=== PATIENT | male | born 1970 | race Caucasian/White ===

== ENCOUNTER → 2020-07-19 15:46 | Outpatient (CLI) | payer OTHER, SELFPAY ==
[2020-07-21 10:02] LABS: Covid-19 Nasal PCR Sendout P&C POSITIVE
== END ==
PROVIDERS: PCP Nurse Practitioner Family; Visit Provider Nurse Practitioner Family
DX: U07.1 COVID-19 (principal)
CPT/HCPCS: U0004

== ENCOUNTER 2020-07-20 17:23 | Inpatient (IN) | payer OTHER, SELFPAY ==
[2020-07-20] VITALS (10 sets, daily range): BP systolic 113–168; BP diastolic 75–108; PULSE 81–112; RESP 18–24; TEMP 36.8–39.4; O2SAT 88–93; BMI 30.4; BMI 38.0
--- NOTE | 2020-07-20 17:27 | HMH.EDGENADL ---
ED Disposition Clinical Impression: Pneumonia due to COVID-19 virus, Acute hypoxemic respiratory failure Disposition: Admitted As Inpatient Condition on Discharge: Good Referrals: Yi Calhoun APRN [Primary Care Provider] - - Critical Care Critical Care Time: No Attestation: On , the high probability of a clinically significant, sudden or life threatening deterioration of the following system(s) required my full and direct attention, intervention and personal management. The time I documented below is in addition to time spent performing reported procedures but includes the following listed in this critical care notation. Medical Decision Making - Medical Records Medical records reviewed: Yes: I reviewed the patient's medical records. - [place] Inquiry Pt receiving controlled substance: No Vital Signs: 07/20/20 17:24 07/20/20 18:24 Temperature 102.9 F H 101.6 F H Temperature Source Oral Oral Pulse Rate [Left Radial] 112 H 109 H Respiratory Rate 20 24 Blood Pressure [Right Arm] 158/93 H 168/104 H Blood Pressure Mean [Right Arm] 114 125 Blood Pressure Source [Right Arm] Automatic Cuff Automatic Cuff Blood Pressure Position [Right Arm] Sitting Supine 02 Sat by Pulse Oximetry 92 L 92 L Oxygen Delivery Method Nasal Cannula Nasal Cannula Oxygen Flow Rate (LPM) 4 4 - Lab Data Lab Results 07/20/20 17:40: Chlamy pneumoniae PCR Not detected, Adenovirus (PCR) Not detected, B. pertussis DNA (PCR) Not detected, Coronavirus OC43 (PCR) Not detected, Coronavirus HKU1 (PCR) Not detected, Coronavirus 229E (PCR) Not detected, SARS-CoV-2 (PCR) Detected A, Coronavirus NL63 (PCR) Not detected, Human Metapneumovir PCR Not detected, Influenza A (H1) PCR Not detected, Influ A (H1N1/09) PCR Not detected, Influenza A (H3) PCR Not detected, Influenza Type A (PCR) Not detected, Influenza Type B (PCR) Not detected, M. pneumoniae (PCR) Not detected, Parainfluenza 1 (PCR) Not detected, Parainfluenza 2 (PCR) Not detected, Parainfluenza 3 (PCR) Not detected, Parainfluenza 4 (PCR) Not detected, RSV (PCR) Not detected, Entero/Rhino (PCR) Not detected 07/20/20 17:40: Troponin I < 0.01 07/20/20 17:40: WBC 8.1, RBC 5.27, Hgb 15.8, Hct 47.6, MCV 90.5, MCH 30.0, MCHC 33.1, RDW 13.7, Plt Count 253, MPV 7.6, Neut % (Auto) 84.5 H, Lymph % (Auto) 10.4, [place] % (Auto) 4.4, Eos % (Auto) 0.1, Baso % (Auto) 0.6, Neut # (Auto) 6.9, Lymph # (Auto) 0.8, [place] # (Auto) 0.4, Eos # (Auto) 0.0, Baso # (Auto) 0.1 07/20/20 17:40: Sodium 140, Potassium 3.7, Chloride 104, Carbon Dioxide 26, Anion Gap 13.7, BUN 17, Creatinine 1.00, Estimated Creat Clear 112, Estimated GFR 79, Est GFR ( Amer) 95, Glucose 127 H, Calcium 9.1, Total Bilirubin 0.6, AST 41, ALT 32, Alkaline Phosphatase 69, Total Protein 7.5, Albumin 3.9, Globulin 3.6 H, Albumin/Globulin Ratio 1.1 07/20/20 17:40: SARS-CoV-2 IgG Ab (Rapid) Positive A, SARS-CoV-2 IgM Ab (Rapid) Negative 07/20/20 17:41: Lactate 1.2 07/20/20 17:57: Specimen Source Left radial, O2 % 4 lpm nc, 36%, ABG pH 7.46 H, ABG pCO2 28.7 L, ABG pO2 68.7 L, ABG HCO3 19.8 L, ABG Total CO2 20.7 L, ABG O2 Saturation 95, ABG Base Excess -4.1 L, Tao Test Acceptable Result diagrams: 07/20/20 17:40 07/20/20 17:40 Orders (Tests/Meds): ED MEDICATIONS Generic Name Dose Route Start Last Admin Trade Name Freq PRN Reason Stop Dose Admin Acetaminophen 650 mg 07/20/20 19:33 Acetaminophen 325mg Tab PO 08/19/20 19:32 Q6HP PRN Mild pain,fever,headache Ascorbic Acid 500 mg 07/20/20 21:00 Ascorbic Acid 500mg Tab PO 08/19/20 20:59 QID JOHANN Dexamethasone Sodium Phosphate 6 mg 07/20/20 09:00 Dexamethasone 4mg/Ml 1ml Vial IV 08/19/20 08:59 DAILY [facility] Enoxaparin Sodium 40 mg 07/21/20 09:00 Enoxaparin 40mg/0.4ml Syringe SQ 08/20/20 08:59 DAILY [facility] Ergocalciferol 50,000 unit 07/20/20 19:45 Ergocalciferol 50,000 Units (1.25mg) Capsule PO 08/19/20 19:44 WEEKLY [facility] Famotidine 20 mg 07/20/20
--- NOTE | 2020-07-20 17:42 | ECG_ITS ---
APPROVED REPORT Exam: Resting ECG HR:117 bpm ECG Measurements Heart Rate 117 AXES TX 120 P 34 QRSd 82 QRS 46 QT 440 T 15 QTc 613 Conclusion Sinus tachycardia with premature atrial complexes with aberrant conduction Low voltage QRS T wave abnormality, consider inferior ischemia T wave abnormality, consider anterolateral ischemia Abnormal ECG Electronically signed by : Jonnie Nieves, 07/21/2020 09:59:02
--- NOTE | 2020-07-20 17:49 | XR_ITS ---
PROCEDURE: XR CHEST PORTABLE CLINICAL HISTORY: soa COMPARISON: No exams were available for comparison FINDINGS: Mild cardiomegaly without failure. Patchy infiltrate/atelectatic change right upper lobe. Infiltrate in both lower lung zones and left midlung. Some of these have a ground-glass attenuation suggesting Covid19 pneumonia. No acute bony abnormalities. IMPRESSION: Bilateral pneumonia suspicious for Covid19 pneumonia Dictated by: Tao Trejo MD 07/20/2020 18:47 Tao Trejo MD in [place] 07/20/2020 18:47
[2020-07-20 17:59] LABS: Basophils # 0.1 K/mm3 (0-0.2); Basophils % 0.6 % (0.1-2.0); Eosinophils % 0.1 % (0.1-12.0); Hematocrit 47.6 % (42.0-52.0); Hemoglobin 15.8 g/dL (14.1-18.0); Lymphocytes # 0.8 K/mm3 (0.7-4.5); Lymphocytes % 10.4 % (10-50); Mean Corpuscular HGB Conc 33.1 g/dL (31.8-35.4); Mean Corpuscular Volume 90.5 fl (80-94); Mean Platelet Volume 7.6 fl (7.4-10.4); Monocytes # 0.4 K/mm3 (0.1-1.0); Monocytes % 4.4 % (1.7-9.3); Neutrophils # 6.9 K/mm3 (1.8-7.8); Neutrophils % 84.5 % (37.0-80.0); Platelet Count 253 K/mm3 (142-424); Red Blood Count 5.27 M/mm3 (4.60-6.20); Red Cell Distribution Width 13.7 % (11.5-17.5); White Blood Count 8.1 K/mm3 (4.8-10.8)
[2020-07-20 18:03] LABS: Adenovirus,PCR Not Detected (NotDetected); Bordetella Pertussis Not Detected (NotDetected); Chlamydophila Pneumoniae, PCR Not Detected (NotDetected); Coronavirus 229E Not Detected (NotDetected); Coronavirus NL63 Not Detected (NotDetected); Coronavirus OC43 Not Detected (NotDetected); Coronovirus HKU1,PCR Not Detected (NotDetected); Human Metapneumovirus Not Detected (NotDetected); Influenza A, PCR Not Detected (NotDetected); Influenza AH1, 2009 Not Detected (NotDetected); Influenza AH1, PCR Not Detected (NotDetected); Influenza AH3,PCR Not Detected (NotDetected); Influenza B, PCR Not Detected (NotDetected); Mycoplasma Pneumoniae, PCR Not Detected (NotDetected); Parainfluenza 1, PCR Not Detected (NotDetected); Parainfluenza 2, PCR Not Detected (NotDetected); Parainfluenza 3, PCR Not Detected (NotDetected); Parainfluenza 4, PCR Not Detected (NotDetected); Respiratory Syncytial Virus Not Detected (NotDetected); Rhinovirus/Enterovirus Not Detected (NotDetected)
[2020-07-20 18:05] LABS: Chloride 104 mmol/L (98-107); Potassium 3.7 mmoL/L (3.5-5.1); Sodium 140 mmol/L (136-145)
[2020-07-20 18:08] LABS: Alanine Aminotransferase 32 U/L (12-78); Albumin Level 3.9 g/dl (3.5-5.0); Albumin/Globulin Ratio 1.1 (1.1-1.8); Alkaline Phosphatase 69 U/L (38-126); Anion Gap 13.7 mEq/L (5-15); Aspartate Amino Transferase 41 U/L (17-59); Bilirubin,Total 0.6 mg/dl (0.2-1.3); Blood Urea Nitrogen 17 mg/dl (9-20); Carbon Dioxide 26 mmol/L (22.0-30.0); Creatinine Clearance Estimated 112 mL/min (50-200); Estimated Glomerular Filt Rate 79 ml/min (>60); GFR (African American) 95 ML/MIN (>60); Globulin 3.6 g/dL (1.3-3.2); Total Protein,Serum 7.5 g/dl (6.3-8.2)
[2020-07-20 18:09] LABS: Calcium 9.1 mg/dl (8.4-10.2); Glucose 127 mg/dl (74-100)
[2020-07-20 18:14] LABS: Lactic Acid 1.2 mmol/L (0.7-2.1)
[2020-07-20 18:23] LABS: Troponin I < 0.01 ng/ml (0.00-0.034)
--- NOTE | 2020-07-20 18:23 | PC.NURSE ---
PT PRESENTED TO ER WITH SOA O2 SAT 88% ON RA PT PLACE ON 02 @ 2LPM O2 SAT INCREASED TO 90% PT THEN PLACED O2 @ 4 LPM WITH O2 SAT TO 94%
[2020-07-20 18:45] LABS: ABG Base Excess -4.1 mmol/L (-2.4-2.3); ABG HCO3 19.8 mmhg (22.0-26.0); ABG Oxygen Saturation 95 % (90-100); ABG PCO2 28.7 mmhg (35.0-45.0); ABG PH 7.46 mmol/L (7.35-7.45); ABG PO2 68.7 mmhg (80-100); ABG TCO2 20.7 mmhg (23-27)
[2020-07-20 18:47] LABS: Allen's Test Acceptable; Source Left Radial
--- NOTE | 2020-07-20 18:57 | PC.NURSE ---
Report given to Jalen Casey RN
[2020-07-20 18:58] LABS: Coronavirus 19 IgG Antibody Positive (Negative); Coronavirus 19 IgM Antibody Negative (Negative)
[2020-07-20 19:32] LABS: Coronavirus 19, PCR Detected (NotDetected)
[2020-07-20 21:21] LABS: Troponin I < 0.01 ng/ml (0.00-0.034)
--- NOTE | 2020-07-20 22:03 | PC.NURSE ---
Bedside report given to RIOS Belle at this time
--- NOTE | 2020-07-20 23:03 | PC.NURSE ---
pt arrived to floor at 5 via stretcher from ER with RIOS Smith
[2020-07-21] VITALS: BP 97/58; PULSE 68; RESP 18; TEMP 36.6; O2SAT 90
--- NOTE | 2020-07-21 02:42 | PC.NURSE ---
RESPIRATORY CARE NOTE: 32995- SPUTUM CUP PLACED IN PT ROOM AT THIS TIME- PT ASLEEP AND UNABLE TO PRODUCE SPUTUM SAMPLE AT THIS TIME
[2020-07-21 03:51] VITALS: BP 140/74; PULSE 66; RESP 22; TEMP 36.6; O2SAT 94
--- NOTE | 2020-07-21 03:57 | PC.NURSE ---
pt is AxOx4, remains on 4L NC, O2 sats 90-91%, respirations 18-22, lungs diminished on auscultation, pt does report SOA on exertion, no reports of chest pain, bowel sounds active in all 4 quadrants, pt does report a poor appetite the past 2-3 days, pt educated on the need for sputum sample and voices understandng, report given to RIOS Hale at [id number]
[2020-07-21 04:46] LABS: Chloride 109 mmol/L (98-107); Sodium 140 mmol/L (136-145)
[2020-07-21 04:49] LABS: Alanine Aminotransferase 32 U/L (12-78); Albumin Level 3.4 g/dl (3.5-5.0); Alkaline Phosphatase 59 U/L (38-126); Aspartate Amino Transferase 37 U/L (17-59); Bilirubin,Total 0.6 mg/dl (0.2-1.3); Blood Urea Nitrogen 19 mg/dl (9-20); Calcium 8.5 mg/dl (8.4-10.2); Carbon Dioxide 24 mmol/L (22.0-30.0); Creatinine Clearance Estimated 201 mL/min (50-200); Estimated Glomerular Filt Rate 119 ml/min (>60); GFR (African American) 144 ML/MIN (>60); Globulin 3.3 g/dL (1.3-3.2); Total Protein,Serum 6.7 g/dl (6.3-8.2)
--- NOTE | 2020-07-21 04:52 | PC.NURSE ---
Report received at 0315 from Chao Young RN. Pt is currently resting in bed. He is currently on 4L O2 NC at this time. NS infusing @ 100 ml/hr. Has been up to BR with assist x1. Soa noted during ambulation. No other concerns at this time. VSS. Will continue to monitor.
[2020-07-21 05:20] LABS: Glucose 181 mg/dl (74-100)
[2020-07-21 08:00] VITALS: BP 106/79; PULSE 88; RESP 19; TEMP 36.6; O2SAT 93
--- NOTE | 2020-07-21 08:11 | HMH.HP ---
*Admission Date: 07/20/20 *Chief complaint: Weakness *History of present illness: 50-year-old male with hypertension presented to the emergency department with a 5-day history of illness that began with loss of energy, fatigue, mild chills, mild headache, mild cough, loss of appetite. 2 days after onset of symptoms patient noticed change in taste of food as well as shortness of breath. He believes he also had low-grade fevers. Patient had Covid antibody testing done at an outside facility 1 day after his symptoms began which of course was negative. He presented to my office on and was sent for coronavirus testing of which that result is still unavailable here. However he became more short of breath and with home pulse oximetry monitoring had reached an O2 sat of 84% and came to the emergency department. In the ER patient was hypoxic with O2 sat documented at 88%. Patient was placed on nasal cannula with improvement in sats to the low to mid 90s. Covid test was positive. Covid antibodies were positive for IgG only. Patient was admitted and placed on remdesivir, dexamethasone, nutritional supplements. This morning he reports feeling a little better . [facility] History I have reviewed the patient's past medical history: Yes Medical History: Reports:: Hypertension Denies:: Cancer, Diabetes Mellitus Type 1, Diabetes Mellitus Type 2, Internal Pacemaker, MRSA *Have you ever received a pneumonia vaccine?: No *Have you received a flu vaccine this season?: No Other Surgeries: No: Pacemaker Amputation: No - *Social History Smoking Status: Never smoker Alcohol Intake: never *Occupational Status:: employed Housing: house Household Members: spouse *Travel in the last 8 weeks: None Family Hx:: No significant family history Review of Systems - Review of Systems Review of systems:: pertinent systems reviewed and negative unless documented below Meds Home Medications Medication Instructions Recorded Confirmed Type lisinopriL [Lisinopril 10mg Tab] 10 mg PO DAILY 07/20/20 07/20/20 History Allergies Allergy/AdvReac Type Severity Reaction Status Date / Time No Known Allergies Allergy Verified 07/20/20 22:19 Exam Vital signs and Labs for Last 24 Hours: Temp Pulse Resp BP Pulse Ox 97.8 F 66 22 140/74 94 L 07/21/20 03:51 07/21/20 03:51 07/21/20 03:51 07/21/20 03:51 07/21/20 03:51 Laboratory Results - last 24 hr 07/20/20 17:40: Chlamy pneumoniae PCR Not detected, Adenovirus (PCR) Not detected, B. pertussis DNA (PCR) Not detected, Coronavirus OC43 (PCR) Not detected, Coronavirus HKU1 (PCR) Not detected, Coronavirus 229E (PCR) Not detected, SARS-CoV-2 (PCR) Detected A, Coronavirus NL63 (PCR) Not detected, Human Metapneumovir PCR Not detected, Influenza A (H1) PCR Not detected, Influ A (H1N1/09) PCR Not detected, Influenza A (H3) PCR Not detected, Influenza Type A (PCR) Not detected, Influenza Type B (PCR) Not detected, M. pneumoniae (PCR) Not detected, Parainfluenza 1 (PCR) Not detected, Parainfluenza 2 (PCR) Not detected, Parainfluenza 3 (PCR) Not detected, Parainfluenza 4 (PCR) Not detected, RSV (PCR) Not detected, Entero/Rhino (PCR) Not detected 07/20/20 17:40: Troponin I < 0.01 07/20/20 17:40: WBC 8.1, RBC 5.27, Hgb 15.8, Hct 47.6, MCV 90.5, MCH 30.0, MCHC 33.1, RDW 13.7, Plt Count 253, MPV 7.6, Neut % (Auto) 84.5 H, Lymph % (Auto) 10.4, [place] % (Auto) 4.4, Eos % (Auto) 0.1, Baso % (Auto) 0.6, Neut # (Auto) 6.9, Lymph # (Auto) 0.8, [place] # (Auto) 0.4, Eos # (Auto) 0.0, Baso # (Auto) 0.1 07/20/20 17:40: Sodium 140, Potassium 3.7, Chloride 104, Carbon Dioxide 26, Anion Gap 13.7, BUN 17, Creatinine 1.00, Estimated Creat Clear 112, Estimated GFR 79, Est GFR ( Amer) 95, Glucose 127 H, Calcium 9.1, Total Bilirubin 0.6, AST 41, ALT 32, Alkaline Phosphatase 69, Total Protein 7.5, Albumin 3.9, Globulin 3.6 H, Albumin/Globulin Ratio 1.1 07/20/20 17:40: SARS-CoV-2 IgG Ab (Rapid) Positive A, SARS-CoV-2 IgM Ab (Rapid) Negative
--- NOTE | 2020-07-21 11:52 | HMH.PHAINT ---
MEDICATION RECONCILIATION COMPLETED ON PATIENT USING EXTERNAL FILL HISTORY FROM PHARMACY. -LEONEL MENDEZ, ANTHONYD
--- NOTE | 2020-07-21 11:52 | HMH.PHAVTE ---
[facility] Pharmacy VTE Monitoring - Patient Demographics Admission date: 07/20/20 Report Date: 07/21/20 Time: 11:52 Allergies/Adverse Reactions: Patient Allergies No Known Allergies Allergy (Verified 07/20/20 22:19) Height: 1.73 m Weight: 113.67 kg Patient Problems: Current Active Problems Pneumonia due to COVID-19 virus (Acute) Acute hypoxemic respiratory failure (Acute) Viral pneumonia (Acute) COVID-19 (Acute) Essential hypertension (Acute) Morbid obesity (Acute) - VTE Risk Labs: VTE Related Lab Results Hgb 15.8 g/dL (14.1-18.0) 07/20/20 17:40 Hct 47.6 % (42.0-52.0) 07/20/20 17:40 Plt Count 253 K/mm3 (142-424) 07/20/20 17:40 BUN 19 mg/dl (9-20) 07/21/20 04:18 Creatinine 0.70 mg/dl (0.66-1.25) D 07/21/20 04:18 Estimated Creat Clear 201 mL/min (50-200) 07/21/20 04:18 VTE Score: 2 VTE Risk Level: Very Low Risk - Prophylaxis VTE Prophylaxis Ordered?: Yes Types of VTE Prophylaxis: TEDS Knee High, Pharmacological Location of Applied Device: Bilateral Lower Extremeties Pharmacologic Type: Enoxaparin
[2020-07-21 12:00] VITALS: BP 128/60; PULSE 77; RESP 20; TEMP 36.4; O2SAT 90
[2020-07-21 16:00] VITALS: BP 137/74; PULSE 93; RESP 20; TEMP 36.9; O2SAT 94
--- NOTE | 2020-07-21 17:28 | PC.NURSE ---
Pt has been pleasant and cooperative this shift. A&O X4. No complaints of pain or SOA. Pt is receiving O2 via NC @ 4 LPM with sats. >90%. Lungs CTA. No edema noted. Skin is C/D/I. Pt ambulates independently to/from the bathroom and throughout the room. Pt has also sat up in the recliner for several hours this shift. 18 G peripheral IV in the LT AC is patent and infusing NS @ 125 ML/HR. VSS. Call light within reach. Will continue to monitor.
--- NOTE | 2020-07-21 17:38 | PC.NURSE ---
Pt has been pleasant and cooperative this shift. A&O X4. No complaints of pain or SOA. Pt is receiving O2 via NC @ 4 LPM with sats. >90%. Lungs CTA. No edema noted. Skin is C/D/I. Pt ambulates independently to/from the bathroom and throughout the room. Pt has also sat up in the recliner for several hours this shift. 18 G peripheral IV in the LT AC is patent and infusing NS @ 100 ML/HR. VSS. Call light within reach. Will continue to monitor.
[2020-07-21 20:00] VITALS: BP 115/65; PULSE 82; RESP 22; TEMP 37; O2SAT 4; O2SAT 89
[2020-07-22] VITALS: BP 124/75; PULSE 70; RESP 19; TEMP 36.8; O2SAT 93
[2020-07-22 04:00] VITALS: BP 122/82; PULSE 71; RESP 19; TEMP 36.5; O2SAT 93
--- NOTE | 2020-07-22 04:42 | PC.NURSE ---
A&O x 4, pleasant. VSS, BL clear throughout on 4L NC, denies SOA and pain at this time. Ambulates to bathroom independently; is able to change positions while in bed independently. IV 18g LAC, c/d/i NS infusing at 100ml/hr. Will continue to monitor.
[2020-07-22 04:52] VITALS: BMI 37.8
[2020-07-22 06:18] LABS: Basophils % 0.2 % (0.1-2.0); Hematocrit 43.9 % (42.0-52.0); Lymphocytes # 0.7 K/mm3 (0.7-4.5); Lymphocytes % 5.7 % (10-50); Mean Corpuscular HGB Conc 31.8 g/dL (31.8-35.4); Mean Corpuscular Hemoglobin 28.9 pg (27.0-31.2); Mean Corpuscular Volume 90.9 fl (80-94); Mean Platelet Volume 8.5 fl (7.4-10.4); Monocytes # 0.4 K/mm3 (0.1-1.0); Monocytes % 3.2 % (1.7-9.3); Neutrophils # 11.3 K/mm3 (1.8-7.8); Neutrophils % 90.8 % (37.0-80.0); Platelet Count 324 K/mm3 (142-424); Red Blood Count 4.84 M/mm3 (4.60-6.20); Red Cell Distribution Width 13.7 % (11.5-17.5); White Blood Count 12.4 K/mm3 (4.8-10.8)
[2020-07-22 06:21] LABS: MANUAL DIFFERENTIAL MANUAL DIFFERENTIAL (MANUAL DIFF)
[2020-07-22 06:30] LABS: Chloride 111 mmol/L (98-107); Potassium 3.7 mmoL/L (3.5-5.1); Sodium 142 mmol/L (136-145)
[2020-07-22 06:33] LABS: Alanine Aminotransferase 54 U/L (12-78); Albumin Level 3.2 g/dl (3.5-5.0); Alkaline Phosphatase 65 U/L (38-126); Anion Gap 10.7 mEq/L (5-15); Aspartate Amino Transferase 54 U/L (17-59); Bilirubin,Total 0.4 mg/dl (0.2-1.3); Blood Urea Nitrogen 19 mg/dl (9-20); Carbon Dioxide 24 mmol/L (22.0-30.0); Creatinine Clearance Estimated 200 mL/min (50-200); Estimated Glomerular Filt Rate 119 ml/min (>60); GFR (African American) 144 ML/MIN (>60); Globulin 3.1 g/dL (1.3-3.2); Total Protein,Serum 6.3 g/dl (6.3-8.2)
[2020-07-22 06:34] LABS: Calcium 8.4 mg/dl (8.4-10.2); Glucose 144 mg/dl (74-100)
[2020-07-22 08:00] VITALS: BP 123/71; PULSE 84; RESP 16; TEMP 36.4; O2SAT 90
--- NOTE | 2020-07-22 08:13 | HMH.ACPN2 ---
Internal Medicine - PN: Subj *Date: 07/22/20 *Time: 08:13 Interval history: Small improvement. He is able to ambulate back and forth to the bathroom without significant dyspnea but admits to taking a shower caused him to get short of breath. Exam Vital signs and Labs for Last 24 Hours: Temp Pulse Resp BP Pulse Ox 97.7 F 71 19 122/82 93 L 07/22/20 04:00 07/22/20 04:00 07/22/20 04:00 07/22/20 04:00 07/22/20 04:00 Laboratory Results - last 24 hr 07/22/20 05:10: WBC 12.4 H D, RBC 4.84, Hgb 14.0 L, Hct 43.9, MCV 90.9, MCH 28.9, MCHC 31.8, RDW 13.7, Plt Count 324 D, MPV 8.5, Neut % (Auto) 90.8 H, Lymph % (Auto) 5.7 L, [place] % (Auto) 3.2, Eos % (Auto) 0.0 L, Baso % (Auto) 0.2, Neut # (Auto) 11.3 H, Lymph # (Auto) 0.7, [place] # (Auto) 0.4, Eos # (Auto) 0.0, Baso # (Auto) 0.0 07/22/20 05:10: Sodium 142, Potassium 3.7, Chloride 111 H, Carbon Dioxide 24, Anion Gap 10.7, BUN 19, Creatinine 0.70, Estimated Creat Clear 200, Estimated GFR 119, Est GFR ( Amer) 144, Glucose 144 H, Calcium 8.4, Total Bilirubin 0.4, AST 54 D, ALT 54 D, Alkaline Phosphatase 65, Total Protein 6.3, Albumin 3.2 L, Globulin 3.1, Albumin/Globulin Ratio 1.0 L I & O for Last 24 hours: Intake & Output 07/19/20 07/20/20 07/21/20 07/22/20 11:59 11:59 11:59 11:59 Intake Total 1660 / 1660 3280 / 3280 Balance 1660 / 1660 3280 / 3280 Weight 250 lb 9.6 oz 250 lb - Constitutional no acute distress - *Routine Respiratory Exam Present: rales (Bibasilar) - *Routine Cardiovascular Exam Present: RRR - *Routine Abdominal Exam Present: soft, normoactive bowel sounds. Absent: tenderness Assessment and Plan (1) Acute hypoxemic respiratory failure Status: Acute Category: Medical Code(s): J96.01 - Acute respiratory failure with hypoxia (2) Viral pneumonia Status: Acute Category: Medical Code(s): J12.9 - Viral pneumonia, unspecified (3) COVID-19 Status: Acute Category: Medical Code(s): U07.1 - COVID-19 (4) Essential hypertension Status: Acute Category: Medical Code(s): I10 - Essential (primary) hypertension (5) Morbid obesity Status: Acute Category: Medical Code(s): E66.01 - Morbid (severe) obesity due to excess calories - Assessment and plan all Dx Assessment and Plan for all problems:: 1. Continue remdesivir, dexamethasone, nutritional supplementation, antibiotics 2. DC IV fluids
[2020-07-22 08:18] LABS: Lymphocytes % 7 % (10-50); Monocytes % 5 % (2-9); Neutrophils % 86 % (42-76); Total Cells Counted 100
[2020-07-22 08:19] LABS: Platelet Estimate Normal; RBC Morphology Normal
[2020-07-22 12:00] VITALS: BP 122/79; PULSE 81; RESP 18; TEMP 36.7; O2SAT 93
[2020-07-22 16:00] VITALS: BP 138/86; PULSE 67; RESP 18; TEMP 36.6; O2SAT 90
--- NOTE | 2020-07-22 17:54 | PC.NURSE ---
Pt has been pleasant and cooperative this shift. A&O X4. No complaints of pain or SOA. Pt's room air saturation at 1600 noted to be 90%. O2 titrated from 4 LPM to 2 LPM at that time. Lung sounds reveal faint expiratory rhonchi. No edema noted. Skin is C/D/I. Pt ambulates independently to/from the bathroom and throughout the room. Pt has also sat up in the recliner for several hours this shift. IVF were DC'd this shift. 18 G peripheral IV in the LT AC is patent and SL. VSS. Call light within reach. Will continue to monitor.
[2020-07-22 20:00] VITALS: BP 143/79; PULSE 75; RESP 19; TEMP 37; O2SAT 90
[2020-07-23] VITALS: BP 136/89; PULSE 62; RESP 19; TEMP 36.4; O2SAT 90
[2020-07-23 04:00] VITALS: BP 114/81; PULSE 66; RESP 19; TEMP 36.8; O2SAT 92
[2020-07-23 05:26] VITALS: BMI 39.2
--- NOTE | 2020-07-23 05:34 | PC.NURSE ---
pt is AxOx4, room air sat of 90% this shift, remains on 2L NC with O2 sats 90-92%, expiratory rhonchi heard on auscultation, no complaints of SOA or chest pain, ambulating independently, was in chair at beginning of shift, pt does state that he is feeling better
--- NOTE | 2020-07-23 07:18 | HMH.ACPN2 ---
Internal Medicine - PN: Subj *Date: 07/23/20 *Time: 07:18 Interval history: Patient reports feeling better today than yesterday. He continues to have shortness of breath with exertion. O2 sats have remained in the low 90s on 2 L of oxygen via the nasal cannula. Patient admits he did sleep better last night. Exam Vital signs and Labs for Last 24 Hours: Temp Pulse Resp BP Pulse Ox 98.2 F 66 19 114/81 92 L 07/23/20 04:00 07/23/20 04:00 07/23/20 04:00 07/23/20 04:00 07/23/20 04:00 Laboratory Results - last 24 hr 07/22/20 05:10: Total Counted 100, Neutrophils % (Manual) 86 H, Band Neutrophils % 2.0, Lymphocytes % (Manual) 7 L, Monocytes % (Manual) 5, Platelet Estimate Normal, RBC Morphology Normal I & O for Last 24 hours: Intake & Output 07/20/20 07/21/20 07/22/20 07/23/20 11:59 11:59 11:59 11:59 Intake Total 1660 / 1660 3520 / 3520 1020 / 1020 Balance 1660 / 1660 3520 / 3520 1020 / 1020 Weight 250 lb 9.6 oz 250 lb 259 lb Microbiology Reports for the Last 24 Hours: Microbiology 07/20/20 17:40 Blood Blood Culture - Preliminary NO GROWTH AFTER 48 HOURS 07/20/20 17:40 Blood Blood Culture - Preliminary NO GROWTH AFTER 48 HOURS - Constitutional no acute distress - *Routine Respiratory Exam Present: rales (Bibasilar) - *Routine Cardiovascular Exam Present: RRR - *Routine Abdominal Exam Present: soft, normoactive bowel sounds, tenderness, obese Assessment and Plan (1) Acute hypoxemic respiratory failure Status: Acute Category: Medical Code(s): J96.01 - Acute respiratory failure with hypoxia (2) Viral pneumonia Status: Acute Category: Medical Code(s): J12.9 - Viral pneumonia, unspecified (3) COVID-19 Status: Acute Category: Medical Code(s): U07.1 - COVID-19 (4) Essential hypertension Status: Acute Category: Medical Code(s): I10 - Essential (primary) hypertension (5) Morbid obesity Status: Acute Category: Medical Code(s): E66.01 - Morbid (severe) obesity due to excess calories - Assessment and plan all Dx Assessment and Plan for all problems:: 1. Continue Remdesivir, dexamethasone, nutritional supplements, antibiotics 2. Check room air sats
[2020-07-23 07:30] LABS: Alanine Aminotransferase 51 U/L (12-78); Albumin Level 3.1 g/dl (3.5-5.0); Alkaline Phosphatase 58 U/L (38-126); Anion Gap 8.8 mEq/L (5-15); Aspartate Amino Transferase 40 U/L (17-59); Bilirubin,Total 0.4 mg/dl (0.2-1.3); Blood Urea Nitrogen 18 mg/dl (9-20); Calcium 8.5 mg/dl (8.4-10.2); Carbon Dioxide 25 mmol/L (22.0-30.0); Chloride 111 mmol/L (98-107); Creatinine Clearance Estimated 207 mL/min (50-200); Estimated Glomerular Filt Rate 119 ml/min (>60); GFR (African American) 144 ML/MIN (>60); Glucose 141 mg/dl (74-100); Potassium 3.8 mmoL/L (3.5-5.1); Sodium 141 mmol/L (136-145); Total Protein,Serum 6.1 g/dl (6.3-8.2)
[2020-07-23 07:59] LABS: Basophils # 0.1 K/mm3 (0-0.2); Basophils % 0.6 % (0.1-2.0); Hematocrit 43.6 % (42.0-52.0); Hemoglobin 14.2 g/dL (14.1-18.0); Lymphocytes # 0.9 K/mm3 (0.7-4.5); Lymphocytes % 9.4 % (10-50); Mean Corpuscular HGB Conc 32.5 g/dL (31.8-35.4); Mean Corpuscular Hemoglobin 29.2 pg (27.0-31.2); Mean Corpuscular Volume 89.7 fl (80-94); Mean Platelet Volume 8.2 fl (7.4-10.4); Monocytes # 0.6 K/mm3 (0.1-1.0); Monocytes % 5.8 % (1.7-9.3); Neutrophils # 8.4 K/mm3 (1.8-7.8); Neutrophils % 84.3 % (37.0-80.0); Platelet Count 384 K/mm3 (142-424); Red Blood Count 4.86 M/mm3 (4.60-6.20); Red Cell Distribution Width 14.1 % (11.5-17.5); White Blood Count 9.9 K/mm3 (4.8-10.8)
[2020-07-23 08:00] VITALS: BP 124/75; PULSE 76; RESP 18; TEMP 36.6; O2SAT 88
[2020-07-23 12:00] VITALS: BP 131/87; PULSE 69; RESP 19; TEMP 36.5; O2SAT 93
[2020-07-23 16:00] VITALS: BP 148/101; PULSE 69; RESP 20; TEMP 36.8; O2SAT 96
[2020-07-23 20:00] VITALS: BP 148/92; PULSE 65; RESP 18; TEMP 36.7; O2SAT 90
--- NOTE | 2020-07-23 20:56 | PC.NURSE ---
Pt alert and oriented and able to make needs known. VSS this shift. Report given to RN this shift, and BP is going to be rechecked. Pt denies pain and has has no complaints this shift. CB in reach. S1,S2, lungs cta, diminished.
[2020-07-24] VITALS: BP 144/89; PULSE 63; RESP 22; TEMP 36.6; O2SAT 92
[2020-07-24 03:52] VITALS: BP 154/93; PULSE 74; RESP 20; TEMP 36.6; O2SAT 90
[2020-07-24 04:48] VITALS: BMI 39.2
[2020-07-24 05:28] VITALS: O2SAT 88
[2020-07-24 05:38] LABS: Basophils # 0.1 K/mm3 (0-0.2); Basophils % 1.2 % (0.1-2.0); Hemoglobin 14.8 g/dL (14.1-18.0); Lymphocytes # 1.2 K/mm3 (0.7-4.5); Lymphocytes % 12.6 % (10-50); Mean Corpuscular HGB Conc 32.9 g/dL (31.8-35.4); Mean Corpuscular Hemoglobin 29.7 pg (27.0-31.2); Mean Corpuscular Volume 90.1 fl (80-94); Mean Platelet Volume 7.9 fl (7.4-10.4); Monocytes # 0.6 K/mm3 (0.1-1.0); Monocytes % 6.3 % (1.7-9.3); Neutrophils # 7.8 K/mm3 (1.8-7.8); Neutrophils % 79.8 % (37.0-80.0); Platelet Count 444 K/mm3 (142-424); Red Blood Count 4.99 M/mm3 (4.60-6.20); Red Cell Distribution Width 14.1 % (11.5-17.5); White Blood Count 9.7 K/mm3 (4.8-10.8)
[2020-07-24 05:51] LABS: Alanine Aminotransferase 115 U/L (12-78); Albumin Level 3.3 g/dl (3.5-5.0); Alkaline Phosphatase 66 U/L (38-126); Anion Gap 11.9 mEq/L (5-15); Aspartate Amino Transferase 92 U/L (17-59); Bilirubin,Total 0.4 mg/dl (0.2-1.3); Blood Urea Nitrogen 19 mg/dl (9-20); Calcium 8.9 mg/dl (8.4-10.2); Carbon Dioxide 26 mmol/L (22.0-30.0); Chloride 106 mmol/L (98-107); Creatinine Clearance Estimated 182 mL/min (50-200); Estimated Glomerular Filt Rate 102 ml/min (>60); GFR (African American) 123 ML/MIN (>60); Globulin 3.3 g/dL (1.3-3.2); Glucose 150 mg/dl (74-100); Potassium 3.9 mmoL/L (3.5-5.1); Sodium 140 mmol/L (136-145); Total Protein,Serum 6.6 g/dl (6.3-8.2)
--- NOTE | 2020-07-24 06:56 | PC.NURSE ---
no acute changes since prior assessment pt has rested well t/o shift, has remained on 1.5 L with O2 sats 90-92%, room air sat this morning was 88%, no complaints of chest pain, still does get SOA with exertion, ambulating independently in room
--- NOTE | 2020-07-24 07:37 | HMH.DCSUM ---
General - General Admission date:: 07/20/20 Discharge date: 07/24/20 HPI HPI: 50-year-old male with hypertension presented to the emergency department with a 5-day history of illness that began with loss of energy, fatigue, mild chills, mild headache, mild cough, loss of appetite. 2 days after onset of symptoms patient noticed change in taste of food as well as shortness of breath. He believes he also had low-grade fevers. Patient had Covid antibody testing done at an outside facility 1 day after his symptoms began which of course was negative. He presented to my office on and was sent for coronavirus testing of which that result is still unavailable here. However he became more short of breath and with home pulse oximetry monitoring had reached an O2 sat of 84% and came to the emergency department. In the ER patient was hypoxic with O2 sat documented at 88%. Patient was placed on nasal cannula with improvement in sats to the low to mid 90s. Covid test was positive. Covid antibodies were positive for IgG only. Patient was admitted and placed on remdesivir, dexamethasone, nutritional supplements. This morning he reports feeling a little better . Hospital Course Hospital Course: Patient was admitted and placed on remdesivir, dexamethasone, nutritional support, Rocephin and azithromycin and supplemental oxygen at 4 L/min to maintain O2 sats greater than 90%. Patient improved daily and on the day prior to discharge oxygen was able to be weaned to 2 L/min which kept sats greater than 90%. Patient was noted to have increased respiratory rate while sleeping as well as periods of apnea. Patient admits this is not a new problem and has been witnessed at home by his and will require outpatient work-up. On the patient reported at least 80% improvement in how he felt overall. He continued to require supplemental oxygen at a lower flow rate. Patient was discharged home with additional steroid and azithromycin Objective Vital signs: Temp Pulse Resp BP Pulse Ox 97.8 F 74 20 154/93 H 88 L 07/24/20 03:52 07/24/20 03:52 07/24/20 03:52 07/24/20 03:52 07/24/20 05:28 no acute distress - *Routine HEENT Exam Head: Present: normocephalic Eye: Present: EOMI, PERRL ENT: Present: mucous membranes moist - *Routine Respiratory Exam Present: rales (Bibasilar with improved aeration at discharge) - *Routine Cardiovascular Exam Present: RRR - *Routine Abdominal Exam Present: soft, normoactive bowel sounds. Absent: tenderness - *Routine Extremities Exam Absent: cyanosis, clubbing, edema Results Labs on day of discharge: Labs from last 24 hours 07/24/20 07/24/20 07/23/20 05:20 05:20 07:03 WBC 9.7 9.9 RBC 4.99 4.86 Hgb 14.8 14.2 Hct 45.0 43.6 MCV 90.1 89.7 MCH 29.7 29.2 MCHC 32.9 32.5 RDW 14.1 14.1 Plt Count 444 H 384 MPV 7.9 8.2 Neut % (Auto) 79.8 84.3 H Lymph % (Auto) 12.6 9.4 L [place] % (Auto) 6.3 5.8 Eos % (Auto) 0.0 L 0.0 L Baso % (Auto) 1.2 0.6 Neut # (Auto) 7.8 8.4 H Lymph # (Auto) 1.2 0.9 [place] # (Auto) 0.6 0.6 Eos # (Auto) 0.0 0.0 Baso # (Auto) 0.1 0.1 Sodium 140 Potassium 3.9 Chloride 106 Carbon Dioxide 26 Anion Gap 11.9 BUN 19 Creatinine 0.80 Estimated Creat Clear 182 Estimated GFR 102 Est GFR ( Amer) 123 Glucose 150 H Calcium 8.9 Total Bilirubin 0.4 AST 92 H D ALT 115 H D Alkaline Phosphatase 66 Total Protein 6.6 Albumin 3.3 L Globulin 3.3 H Albumin/Globulin Ratio 1.0 L Preliminary micro results at discharge 07/20/20 17:40 Blood Culture - Preliminary Blood NO GROWTH AFTER 48 HOURS 07/20/20 17:40 Blood Culture - Preliminary Blood NO GROWTH AFTER 48 HOURS DS: Diagnosis - Discharge Diagnosis (1) Acute hypoxemic respiratory failure Status: Resolved (2) Viral pneumonia Status: Acute (3) COVID-19 S
[2020-07-24 07:39] VITALS: BP 136/79; PULSE 63; RESP 20; TEMP 36.9; O2SAT 94
--- NOTE | 2020-07-24 08:58 | HMH.ACPN ---
Internal Medicine - PN: Subj *Date: 07/24/20 *Time: 08:58 Exam Vital signs and Labs for Last 24 Hours: Temp Pulse Resp BP Pulse Ox 98.4 F 63 20 136/79 94 L 07/24/20 07:39 07/24/20 07:39 07/24/20 07:39 07/24/20 07:39 07/24/20 07:39 Laboratory Results - last 24 hr 07/24/20 05:20: WBC 9.7, RBC 4.99, Hgb 14.8, Hct 45.0, MCV 90.1, MCH 29.7, MCHC 32.9, RDW 14.1, Plt Count 444 H, MPV 7.9, Neut % (Auto) 79.8, Lymph % (Auto) 12.6, [place] % (Auto) 6.3, Eos % (Auto) 0.0 L, Baso % (Auto) 1.2, Neut # (Auto) 7.8, Lymph # (Auto) 1.2, [place] # (Auto) 0.6, Eos # (Auto) 0.0, Baso # (Auto) 0.1 07/24/20 05:20: Sodium 140, Potassium 3.9, Chloride 106, Carbon Dioxide 26, Anion Gap 11.9, BUN 19, Creatinine 0.80, Estimated Creat Clear 182, Estimated GFR 102, Est GFR ( Amer) 123, Glucose 150 H, Calcium 8.9, Total Bilirubin 0.4, AST 92 H D, ALT 115 H D, Alkaline Phosphatase 66, Total Protein 6.6, Albumin 3.3 L, Globulin 3.3 H, Albumin/Globulin Ratio 1.0 L I & O for Last 24 hours: Intake & Output 07/21/20 07/22/20 07/23/20 07/24/20 23:59 23:59 23:59 23:59 Intake Total 2432 / 2432 1020 / 1020 300 / 300 Output Total 100 / 100 Balance 2432 / 2432 1020 / 1020 200 / 200 Weight 113.398 kg 117.48 kg 117.48 kg Assessment and Plan (1) Acute hypoxemic respiratory failure Status: Resolved Category: Medical Code(s): J96.01 - Acute respiratory failure with hypoxia (2) Viral pneumonia Status: Acute Category: Medical Code(s): J12.9 - Viral pneumonia, unspecified (3) COVID-19 Status: Acute Category: Medical Code(s): U07.1 - COVID-19 (4) Essential hypertension Status: Acute Category: Medical Code(s): I10 - Essential (primary) hypertension (5) Morbid obesity Status: Acute Category: Medical Code(s): E66.01 - Morbid (severe) obesity due to excess calories The patient's infection will respond to the chosen ABx?: Yes Is the patient receiving the right drug, dose, and route?: Yes Could a more targeted ABx be ordered?: No
--- NOTE | 2020-07-24 09:28 | SW/DCPLANNER ---
RECEIVED AN ORDER FOR HOME 02 FOR THIS PATIENT.... SENT REFERRAL TO [facility] AND A PORTABLE WILL BE DELIVERED TO HIS ROOM...
== END 2020-07-24 12:06 | disposition home or self-care (01) | DRG 177 ==
LOC: ER 20:00 → 2ND 07-21 04:27 → ICU 07-21 12:45
PROVIDERS: Admitting Provider Internal Medicine Adolescent Medicine; Emergency Provider Emergency Medicine; PCP Nurse Practitioner Family; Visit Provider Family Medicine
DX: U07.1 COVID-19 (principal); J96.01 Acute respiratory failure with hypoxia; J12.82 Pneumonia due to coronavirus disease 2019; I10 Essential (primary) hypertension
CPT/HCPCS: 36415; 71045; 80053; 82803; 83605; 84484; 85007; 85025; 86328; 87040; 87581; 87633; 87798; 93005; 96365; 96367; 96375; 99282; J0456; U0003; U0004

== ENCOUNTER → 2020-08-24 11:34 | Outpatient (CLI) | payer OTHER, SELFPAY | PROVIDERS: PCP Family Medicine; Visit Provider Family Medicine | DX: R06.81 Apnea, not elsewhere classified (principal) | CPT/HCPCS: 95806 ==

== ENCOUNTER → 2022-11-15 09:10 | Outpatient (CLI) | payer OTHER, SELFPAY ==
[2022-11-15 09:58] LABS: Basophils % 0.8 % (0.1-2.0); Eosinophils # 0.2 K/mm3 (0.0-0.4); Eosinophils % 3.5 % (0.1-12.0); Hematocrit 46.6 % (42.0-52.0); Hemoglobin 14.9 g/dL (14.1-18.0); Lymphocytes # 1.4 K/mm3 (0.7-4.5); Lymphocytes % 31.6 % (10-50); Mean Corpuscular HGB Conc 31.9 g/dL (31.8-35.4); Mean Corpuscular Hemoglobin 29.7 pg (27.0-31.2); Mean Corpuscular Volume 92.9 fl (80-94); Mean Platelet Volume 7.3 fl (7.4-10.4); Monocytes # 0.3 K/mm3 (0.1-1.0); Monocytes % 7.4 % (1.7-9.3); Neutrophils # 2.5 K/mm3 (1.8-7.8); Neutrophils % 56.8 % (37.0-80.0); Platelet Count 278 K/mm3 (142-424); Red Blood Count 5.01 M/mm3 (4.60-6.20); Red Cell Distribution Width 14.2 % (11.5-17.5); White Blood Count 4.4 K/mm3 (4.8-10.8)
[2022-11-15 10:43] LABS: Hemoglobin A1C 5.3 % (4.0-6.0)
[2022-11-15 10:47] LABS: Alanine Aminotransferase 35 U/L (12-78); Albumin Level 4.4 g/dl (3.5-5.0); Albumin/Globulin Ratio 1.9 (1.1-1.8); Alkaline Phosphatase 69 U/L (38-126); Anion Gap 17.5 mEq/L (5-15); Aspartate Amino Transferase 33 U/L (17-59); Bilirubin,Total 0.3 mg/dl (0.2-1.3); Blood Urea Nitrogen 19 mg/dl (9-20); Calcium 9.3 mg/dl (8.4-10.2); Carbon Dioxide 27 mmol/L (22.0-30.0); Chloride 101 mmol/L (98-107); Chol/HDL Ratio 4.1 (1-3.5); Cholesterol 180 mg/dl (140-200); Estimated Glomerular Filt Rate 78 ml/min (>60); GFR (African American) 95 ML/MIN (>60); Globulin 2.3 g/dL (1.3-3.2); Glucose 67 mg/dl (74-100); HDL Cholesterol 44 mg/dl (40-60); Potassium 4.5 mmoL/L (3.5-5.1); Sodium 141 mmol/L (136-145); Total Protein,Serum 6.7 g/dl (6.3-8.2); Triglycerides 108 mg/dl (30-150); VLDL Cholesterol 22 mg/dL (0-40)
[2022-11-15 10:57] LABS: Direct LDL Cholesterol 118.49 mg/dL (100-129)
[2022-11-15 11:02] LABS: Triiodothryronine (T3) Uptake 30 % (23.5-40.5)
[2022-11-15 11:17] LABS: Prostate Specific Ag Screen 0.6 ng/ml (0.0-4.0); Thyroid Stimulating Hormone 1.78 uIU/mL (0.465-4.68)
[2022-11-15 11:32] LABS: Free Thyroxine Index 2.3 ug/dL (5.93-13.13); T4 (Thyroxine) 7.8 ug/dl (5.53-11.0)
== END ==
PROVIDERS: PCP Internal Medicine Adolescent Medicine; Visit Provider Internal Medicine Adolescent Medicine
DX: Z00.00 Encounter for general adult medical examination without abnormal findings (principal); E11.9 Type 2 diabetes mellitus without complications; I10 Essential (primary) hypertension; E78.5 Hyperlipidemia, unspecified; M25.561 Pain in right knee; M25.562 Pain in left knee; Z12.5 Encounter for screening for malignant neoplasm of prostate
CPT/HCPCS: 36415; 80053; 80061; 83036; 84436; 84443; 84479; 85025; G0103